=== PATIENT | male | born 1960 | race Caucasian/White ===

== ENCOUNTER 2017-04-06 11:15 | Emergency (ER) | payer OTHER, BC ==
[2017-04-06 11:22] VITALS: BP 107/59; PULSE 60; RESP 18; TEMP 98.2; O2SAT 93
--- NOTE | 2017-04-06 11:29 | EDPHY ---
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 Complaining of reproducible right shoulder pain ever since, reproducible range of motion and palpation. No deformity. No paresthesia. No head injury. No chest pain or injury. No dyspnea. No back pain. PRIMARY CARE PROVIDER:Worker's [employer] REVIEW OF SYSTEMS: A ten point review of systems was performed and is negative with the exception of the items mentioned in the HPI PAST MEDICAL/SURGICAL HISTORY: No prior history of right shoulder injury SOCIAL HISTORY: denies alcohol use at time of incident PHYSICAL EXAM 1) GENERAL: Well-developed, well-nourished, alert and oriented. Appears to be in no acute distress. Answering questions appropriately. 2) HEAD: Normocephalic, atraumatic 3) HEENT: Pupils equal, round, reactive to light bilaterally.. 4) NECK: No cervical collar is on. Posterior cervical spine is nontender, no stepoff, no effusion. Full range of motion which does not elicit any midline cervical spine pain, no posterior midline tenderness, no step-off. 5) LUNGS: Clear to auscultation bilaterally, no wheezes, no rhonchi, no retractions. No obvious signs of trauma. No chest wall pain. No flaring, no grunting. Moving symmetrically. No crepitus. 6) HEART: [Regular rate and rhythm, 7) ABDOMEN: No guarding, no rebound, no focal tenderness, no peritoneal signs, no signs of trauma, no ecchymosis 8) MUSCULOSKELETAL: Right upper extremity: No visible signs of trauma. Tender to palpation right anterolateral shoulder, reproducible with palpation and range of motion. No step-off. Bilateral deltoid sensation intact. Radial ulnar median nerve function intact distally. Brisk pulses and capillary refill distally. Symmetrical bilaterally. Otherwise, Moving all extremities, no focal areas of tenderness, no obvious trauma. 9) BACK: No midline vertebral tenderness, no fluctuance, no step-off, no obvious trauma, no visual or palpable abnormality. 10) SKIN: No laceration. No abrasion DIFFERENTIAL DIAGNOSIS: In no particular order including but not limited to fracture, sprain, strain, dislocation Smoking Status: Never smoked Constitutional: Initial Vital Signs Temperature (C) 36.8 C 04/06/17 11:19 Heart Rate 60 04/06/17 11:19 Respiratory Rate 18 04/06/17 11:19 Blood Pressure 107/59 L 04/06/17 11:19 O2 Sat (%) 93 04/06/17 11:19 O2 Delivery Mode Room Air Allergies/Adverse Reactions: No Known Allergies Allergy (Verified 04/06/17 11:18) Home Medications: Medication Instructions Recorded NK [No Known Home Meds] 04/06/17 MDM/Departure - MDM Imaging Results: Imaging Impressions Shoulder X-Ray 04/06/17 11:26 Impression: No acute findings in the shoulder. Images reviewed myself Procedures: Procedure: Splint A sling splint was applied by ER multi craft maintenance technician. After application of the splint I returned and re-examined the patient. The splint was adequately immobilizing the joint and distal to the splint the patient's circulation and sensation were intact. Patient shows no signs of compartment syndrome. Was given orthopedic precautions. ED Course/Re-evaluation: Discussed with patient limitations of x-ray in the diagnosis of right shoulder pain. I do not think that emergent MRI is indicated. I recommended follow up with work comp provider also provided orthopedic follow-up information. Given a sling, we discussed Tylenol Motrin for discomfort, ice packs usual and customary orthopedic precautions and instructions. He feels comfortable being discharged. Care of patient under supervision of primary Supervising physician Dr Lonnie Tai. - Depart Disposition: Home, Routine, Self-Care Clinical Impression: Right shoulder pain Qualifiers: Chronicity: acute Qualified Code(s): M25.511 - Pain in right shoulder Fall from slipping on ice Qualifiers: Encounter type: initial encounter Qualified Code(s): W00.9XXA - Unspecified fall due to ice and snow, initial encounter Condition: Good Instructions: Shoulder Sprain (ED) Additional Instructions: Return to the ER immediately if you experience discoloration, have worsening pain, numbness, tingling, or any other symptoms that concern you. If you received x-rays in the emergency department today, be advised, that ligamentous , tendon, muscular, and other non-bony injury cannot be fully ruled out. Try to keep your affected extremity elevated above the level of your chest, and keep cold packs on the affected area, for the next 48 hours. Adult Pain & Fever Control: We recommend Acetaminophen (Tylenol) and Ibuprofen (Motrin,Advil) for pain and fever control. When fever is high or pain severe, both drugs can be used at the same time, but at different intervals. Please note the time differences. Your dose is: Acetaminophen 650mg every 4 to 6 hours Ibuprofen 600mg every 6 hours with food OR Note: do not take Acetaminophen with Hydrocodone (Vicodin, Lortab) or Oycodone (Percocet). These medications also contain Acetaminophen. No more than 3000mg of Acetaminophen should be taken in 24 hours (for an adult). Stand Alone Forms: Work Comp Follow Up Referrals: Deandre Vale MD [Medical Doctor] - As per Instructions
== END 2017-04-06 11:57 | disposition home or self-care (01) ==
DX: S49.91XA Unspecified injury of right shoulder and upper arm, initial encounter (principal); W00.0XXA Fall on same level due to ice and snow, initial encounter
CPT/HCPCS: A4565

== ENCOUNTER 2017-05-28 09:14 | Emergency (ER) | payer BC, OTHER ==
[2017-05-28 09:20] VITALS: RESP 18; TEMP 97.5
[2017-05-28] MEDS ORDERED: HYDROmorphONE/DILAUDID 2 MG/ML INJ ONE (09:51)
[2017-05-28] MEDS ORDERED: HYDROmorphONE/DILAUDID 1 MG/ML INJ IVP ONE (09:52)
[2017-05-28] MEDS ORDERED: NS 1,000 ML IV ONE (09:52)
--- NOTE | 2017-05-28 09:53 | EDPHY ---
General Time Seen by Provider: 05/28/17 09:37 Narrative: CHIEF COMPLAINT: Flank pain HISTORY OF PRESENT ILLNESS: Patient complains of severe right-sided flank pain. This started yesterday afternoon while driving home from vacation. It is located over the right flank. It has been constant duration. Currently rated as severe, 10/10. It has been less severe at times but never fully resolved. No position of comfort. Does not radiate. No urinary complaints. No fever or chills. Some nausea but no vomiting. Contacted the [facility] and they recommended he come here as he reported he was in too much pain to drive to [place]. No other associated complaints or modifying factors. REVIEW OF SYSTEMS: Ten systems reviewed and are negative unless otherwise noted in the HPI PCP: [facility] in: [place] SPECIALISTS: None PAST MEDICAL HISTORY: Denies any ongoing medical history PAST SURGICAL HISTORY: Appendectomy remotely SOCIAL HISTORY: Nonsmoker. No drug or alcohol use. Works for the [employer]. FAMILY HISTORY: Noncontributory EXAMINATION General Appearance: Alert, no distress in obvious discomfort Head: normocephalic, atraumatic Eyes: Pupils equal and round, no conjunctival pallor or injection ENT, Mouth: Mucous membranes moist. Airway patent Neck: Normal inspection, supple, non-tender Respiratory: Lungs are clear to auscultation. No wheezing, rhonchi or crackles Cardiovascular: Regular rate and rhythm. No murmur Gastrointestinal: Abdomen is soft and nondistended. There is moderate right- sided CVA tenderness. No tympany. No rigidity. No guarding. Bowel sounds are present all 4 quadrants. Back: non-tender, no bony abnormalities Neurological: A&O, nonfocal, normal gait Skin: Warm and dry, no rash no petechiae or purpura Extremities: Nontender, no pedal edema Psychiatric: Mood and affect normal DIFFERENTIAL DIAGNOSES: Including but not limited to renal colic, UTI, pyelonephritis, colitis, diverticulitis, biliary colic MDM: 9:50 a.m. Right-sided flank pain with history examination that suggest renal colic. Vital signs are stable but he does appear to be in significant pain with mild diaphoresis. His abdominal exam is benign. Laboratory studies have been drawn. Urinalysis has been sent. He is currently receiving IV pain medication. I will be kept NPO. 10:20 a.m. Laboratory studies are unremarkable. No signs of infection or bleeding. Urinalysis unremarkable. Patient's history exam due suggest renal colic, thus I will order CT scan abdomen pelvis without contrast. I have also ordered IV Toradol as he has normal kidney function. 10:35 a.m. Patient re-evaluated. He is improved and his pain but not quite resolved. CT scan is pending. 11:40 a.m. Notified by radiologist. CT scan reveals no acute findings. 12:00 p.m. Patient re-evaluated. He says his pain is improved is currently still 5/10. This is a reproducible right CVA tenderness. Laboratory studies and CT scans are inconclusive for explaining this pain. I will discuss with Dr. Raines for him to evaluate. 12:45 p.m. Patient re-evaluated. He says that it Toradol has significantly improved his pain. Suspected this may have been a passed stone. His abdominal exam is benign. He would like to be discharged home. I do feel he is stable do so. We discussed discharge home with short course of pain medication nausea medication as needed. We discussed follow up with primary care physician. We discussed that he must return to the emergency department tomorrow morning if is not completely resolved. We discussed returning sooner for any return of symptoms, fever, urinary complaints. He is comfortable this plan and discharged home stable condition SUPERVISION: Patient was evaluated and examined in conjunction with my secondary supervising physician as documented. We have both examined the patient. - Diagnostics Imaging Results: Imaging Impressions Abdomen/Pelvis CT 05/28/17 10:18 Impression: No evidence for nephrolithiasis or hydronephrosis. Moderate constipation. Results called and discussed with Carlitos Shannon PA-C on May 28, 2017 at 1129 hours. Attention: This CT examination is specifically designed to evaluate patients who are clinically suspected of having acute obstructive uropathy. This examination does not use radiographic contrast, and as such, provides only a limited evaluation of the abdomen, pelvis and retroperitoneum. If there is further clinical suspicion for pathological conditions other than obstructive uropathy, a complete CT evaluation of the abdomen and pelvis utilizing intravenous, oral, and rectal contrast should be considered. - History Smoking Status: Never smoked - Objective Vital Signs: Initial Vital Signs Temperature (C) 97.5 F 05/28/17 09:17 Heart Rate 63 05/28/17 09:17 Respiratory Rate 18 05/28/17 09:17 Blood Pressure 106/46 L 05/28/17 09:17 O2 Sat (%) 92 05/28/17 09:17 O2 Delivery Mode Room Air O2 (L/minute) 2 Allergies/Adverse Reactions: No Known Allergies Allergy (Verified 05/28/17 09:16) Home Medications: Medication Instructions Recorded Ondansetron Odt [Zofran Odt 4 mg 4 mg PO Q6 PRN #12 tab 05/28/17 (*)] oxyCODONE HCL/ACETAMINOPHEN 1 each PO Q4-6PRN PRN #7 tablet 05/28/17 [Percocet 5-325 mg Tablet] Laboratory Results: Laboratory Results 05/28/17 09:45 05/28/17 09:45 05/28/17 05/28/17 05/28/17 09:45 09:45 09:25 WBC 9.64 10^3/uL H 10^3/uL (3.80-9.50) RBC 5.65 10^6/uL 10^6/uL (4.40-6.38) Hgb 17.6 g/dL H g/dL (13.7-17.5) Hct 51.0 % % (40.0-51.0) MCV 90.3 fL fL (81.5-99.8) MCH 31.2 pg pg (27.9-34.1) MCHC 34.5 g/dL g/dL (32.4-36.7) RDW 12.9 % % (11.5-15.2) Plt Count 155 10^3/uL 10^3/uL (150-400) MPV 11.4 fL fL (8.7-11.7) Neut % (Auto) 76.1 % H % (39.3-74.2) Lymph % (Auto) 14.6 % L % (15.0-45.0) [place] % (Auto) 7.6 % % (4.5-13.0) Eos % (Auto) 1.2 % % (0.6-7.6) Baso % (Auto) 0.1 % L % (0.3-1.7) Nucleat RBC Rel Count 0.0 % % (0.0-0.2) Absolute Neuts (auto) 7.33 10^3/uL H 10^3/uL (1.70-6.50) Absolute Lymphs (auto) 1.41 10^3/uL 10^3/uL (1.00-3.00) Absolute Monos (auto) 0.73 10^3/uL 10^3/uL (0.30-0.80) Absolute Eos (auto) 0.12 10^3/uL 10^3/uL (0.03-0.40) Absolute Basos (auto) 0.01 10^3/uL L 10^3/uL (0.02-0.10) Absolute Nucleated RBC 0.00 10^3/uL 10^3/uL (0-0.01) Immature Gran % 0.4 % % (0.0-1.1) Immature Gran # 0.04 10^3/uL 10^3/uL (0.00-0.10) Sodium 143 mEq/L mEq/L (135-145) Potassium 4.9 mEq/L mEq/L (3.5-5.2) Chloride 108 mEq/L mEq/L (97-110) Carbon Dioxide 24 mEq/l mEq/l (22-31) Anion Gap 11 mEq/L mEq/L (8-16) BUN 30 mg/dL H mg/dL (7-23) Creatinine 0.8 mg/dL mg/dL (0.7-1.3) Estimated GFR > 60 Glucose 83 mg/dL mg/dL (70-100) Calcium 9.0 mg/dL mg/dL (8.5-10.4) Total Bilirubin 0.8 mg/dL mg/dL (0.1-1.4) Conjugated Bilirubin 0.3 mg/dL mg/dL (0.0-0.5) Unconjugated Bilirubin 0.5 mg/dL mg/dL (0.0-1.1) AST 28 IU/L IU/L (17-59) ALT 54 IU/L IU/L (21-72) Alkaline Phosphatase 82 IU/L IU/L (38-126) Total Protein 6.9 g/dL g/dL (6.3-8.2) Albumin 3.7 g/dL g/dL (3.5-5.0) Lipase 48 IU/L IU/L (23-300) Urine Color YELLOW Urine Appearance CLEAR Urine pH 5.0 (5.0-7.5) Ur Specific [place] 1.025 (1.002-1.030) Urine Protein NEGATIVE (NEGATIVE) Urine Ketones NEGATIVE (NEGATIVE) Urine Blood NEGATIVE (NEGATIVE) Urine Nitrate NEGATIVE (NEGATIVE) Urine Bilirubin NEGATIVE (NEGATIVE) Urine Urobilinogen NEGATIVE EU EU (0.2-1.0) Ur Leukocyte Esterase NEGATIVE (NEGATIVE) Urine RBC 1-3 /hpf /hpf (0-3) Urine WBC 1-3 /hpf /hpf (0-3) Ur Epithelial Cells NONE SEEN /lpf /lpf (NONE-1+) Urine Glucose NEGATIVE (NEGATIVE) Medications Given: Discontinued Medications Hydromorphone HCl (Dilaudid) 0.5 mg IVP EDNOW ONE Stop: 05/28/17 09:53 Last Admin: 05/28/17 09:54 Dose: 0.5 mg Sodium Chloride (Ns) 1,000 mls @ 3,000 mls/hr IV ONCE ONE Stop: 05/28/17 10:11 Last Admin: 05/28/17 09:53 Dose: 1,000 mls Ketorolac Tromethamine (Toradol) 30 mg IVP EDNOW ONE Stop: 05/28/17 10:39 Last Admin: 05/28/17 12:24 Dose: 30 mg Departure - Departure Disposition: Home, Routine, Self-Care Clinical Impression: Acute right flank pain Condition: Good Instructions: Oxycodone/Acetaminophen (By mouth), Ondansetron (By mouth), Renal Colic (ED), Flank Pain (ED) Additional Instructions: 1. Percocet pain medication as prescribed as needed 2. Zofran for nausea as prescribed as needed 3. Follow up with primary care physician tomorrow. He will need To call them for appointment 4. ED precautions as discussed Referrals: CORAL REDDY [Other] - As per Instructions Stand Alone Forms: Work Excuse Prescriptions: Ondansetron Odt [Zofran Odt 4 mg (*)] 4 mg PO Q6 PRN #12 tab PRN Reason: Nausea/Vomiting, Use 1st oxyCODONE HCL/ACETAMINOPHEN [Percocet 5-325 mg Tablet] 1 each PO Q4-6PRN PRN #7 tablet PRN Reason: Pain, Breakthrough
[2017-05-28 09:58] LABS: PLATELET COUNT 155 10^3/uL (150-400)
[2017-05-28 10:07] VITALS: O2SAT 95
[2017-05-28] MEDS ORDERED: KETOROLAC 30 MG/1 ML SDV IVP ONE (10:38)
[2017-05-28 13:03] VITALS: BP 115/63; PULSE 56
== END 2017-05-28 13:02 | disposition home or self-care (01) ==
DX: R10.9 Unspecified abdominal pain (principal); Z90.89 Acquired absence of other organs
CPT/HCPCS: 96374; J1170; J1885